=== PATIENT | female | born 1970 ===

== ENCOUNTER → 2018-06-27 | Outpatient (REF) ==
--- NOTE | 2018-06-27 15:51 | REP ---
Clinical: Right shoulder pain. Technique: Internal rotation, external rotation, and Y view of the right shoulder. Findings: Cortical irregularity and suspected broad-based spurring along the inferior portion of the glenoid rim is appreciated along with mild cortical irregularity to the humeral head best identified along the anteromedial portion on internal rotation view. Mild cortical irregularity at the acromioclavicular joint also noted. The subacromial space is narrowed to 6.6 mm on external rotation. No periarticular calcifications or loose bodies are identified. No evidence for acute fracture dislocation. Impression: Mild/early moderate arthritic degenerative changes. Electronically Signed by Manolo Lewis MD 06/27/2018 03:43 P
== END ==
LOC: M SMT 14:03
PROVIDERS: ATTEND Internal Medicine
DX: Z02.71 Encounter for disability determination (principal)